=== PATIENT | female | born 1975 | race Caucasian/White ===

== ENCOUNTER 2016-08-28 11:29 | Outpatient (CLI) | payer OTHER ==
--- NOTE | 2016-08-28 12:50 | DIAGNOSTIC IMAGING REPORT ---
PROCEDURE: MG BILATERAL DIAGNOSTIC W/CAD INDICATION: Palpable area lower inner quadrant right breast. History of previous benign breast biopsies. Family history breast carcinoma (aunt). TECHNIQUE: CC and MLO digital views of each breast with true-lateral digital view of the right breast. In addition, spot compression CC and MLO views were obtained of the lower inner breast (region of clinical concern). Finally, high-resolution right breast ultrasound was performed (18 mHz). COMPARISON: Compared to 11/22/2015, 12/22/2013, 08/31/2013, 08/07/2013, and 07/21/2013. FINDINGS: MAMMOGRAM: Computer-aided detection applied. Dense parenchymal pattern with a few scattered dystrophic and microcalcifications. No evidence of abnormality in the lower inner right breast. BREAST ULTRASOUND: Normal parenchyma. No evidence of mass or cyst. IMPRESSION: 1. Negative mammogram and negative right breast ultrasound. 2. Resume routine screening schedule (reset July 2017). 3. Findings discussed with the patient. RESULT CODE: 2- Benign finding(s). A. A negative report should not delay biopsy if a dominant or clinically suspicious mass is present. 10-15% of cancers are not identified by x-ray. B. A negative report may reinforce clinical impression. C. Adenosis and dense breasts may obscure an underlying neoplasm. D. False positive reports average 6-10%. E.. A yearly screening mammogram is recommended. A reminder letter will be scheduled.
== END 2016-08-28 23:00 ==
LOC: MAM SRH 11:29
DX: N64.59 Other signs and symptoms in breast (principal)